=== PATIENT | female | born 1985 | race African-American/Black ===

== ENCOUNTER 2017-07-05 13:06 | Outpatient (CLI) | payer OTHER ==
[~2017-07-05] VITALS: Ht 167.6 cm; Wt 81.5 kg
[2017-07-05] VITALS (7 sets, daily range): BP systolic 112–128; BP diastolic 64–79; PULSE 49–70; TEMP 98.4
[~2017-07-05 13:06] MED LIST: MIDRIN 325 MG-11 CAP PO; TOPAMAX 25MG25 M1 PO
[2017-07-05 15:02] LABS: CSF APPEARANCE CLEAR; CSF COLOR COLORLESS
[2017-07-05 15:17] LABS: GLUCOSE,CSF 59 mg/dL (40-70); TOTAL PROTEIN,CSF 25 mg/dL (15-45)
[2017-07-05 15:28] LABS: CSF RBC 20 /mm3 (0-0)
[2017-07-05 15:39] LABS: CSF MONONUCLEAR 100 % (70-100); CSF POLYMORPHONUCLEAR 0 % (0-6)
[2017-07-07 15:00] LABS: ALBUMIN CSF 11.3 mg/dL (<=27.0); CSF IGG/ALBUMIN 0.13 (<=0.21); CSF,IGG 1.5 mg/dL (<=8.1)
[2017-07-07 15:13] LABS: CSF-IGG INDEX 0.5 (<=0.85); IGG/ALBUMIN SERUM 0.26 (<=0.40)
== END 2017-07-05 16:56 | disposition home or self-care (01) ==
LOC: COL.RAD 13:06
PROVIDERS: Psychiatry & Neurology Neurology
DX: R90.89 Other abnormal findings on diagnostic imaging of central nervous system (principal); R42 Dizziness and giddiness

== ENCOUNTER → 2017-08-14 | Outpatient (CLI) | payer OTHER | LOC: MHCPAIN 12:08 | DX: G89.29 Other chronic pain (principal); M47.27 Other spondylosis with radiculopathy, lumbosacral region; M48.061 Spinal stenosis, lumbar region without neurogenic claudication | CPT/HCPCS: G0463 ==

== ENCOUNTER → 2017-09-06 | Outpatient (CLI) | payer OTHER | LOC: MHCPAIN 12:32 | DX: M47.27 Other spondylosis with radiculopathy, lumbosacral region (principal); M51.06 Intervertebral disc disorders with myelopathy, lumbar region | CPT/HCPCS: J1100; J2250; J2405; J3010; Q9967 ==

== ENCOUNTER → 2017-09-18 | Outpatient (CLI) | payer OTHER | LOC: MHCPAIN 09:53 | DX: G89.29 Other chronic pain (principal); M47.817 Spondylosis without myelopathy or radiculopathy, lumbosacral region; M54.16 Radiculopathy, lumbar region; M53.3 Sacrococcygeal disorders, not elsewhere classified; M48.061 Spinal stenosis, lumbar region without neurogenic claudication | CPT/HCPCS: G0463 ==